=== PATIENT | female | born 1985 | race Caucasian/White ===

== ENCOUNTER 2017-01-14 22:36 | Inpatient (IN) | payer OTHER ==
[~2017-01-14] VITALS: Ht 165.1 cm; Wt 82.6 kg
[2017-01-14] MEDS ORDERED: PRENATAL TABLE1 EAC2 PO (23:28)
--- NOTE | 2017-01-14 23:52 | History & Physical ---
General Information and HPI MD Statement: I have seen and personally examined MARK STANTONARY Brittney and documented this H&P. The patient is a 31 year old female at [38] weeks and [1/7] days gestation who presented with a chief complaint of SROM []. Source of Information: patient, old records Exam Limitations: no limitations History of Present Illness: 31 YO LMP 04/14/2017 BUT ANKIT BY U/S OF 06/21/2017, @ 8 WK 4/7 DAYS, GIVING ANKIT 01/27/2017. SHE IS @ 38 1/7 WEEKS W/ SROM @ 22:00 ON 01/14/2017. CLEAR FLUID NOTED. ISSUES FOR THIS : 1.) GEST DM: DIET CONTROLLED- GOOD CONTROL (HGB A1C 4.8, 12/27/2016) 01/11/2017 SHOULDER DYSTOCIA SCREEN WAS NEG (E F WT THEN WAS 7#1oz, 64%) ENDOCRINE MD CHECKED THYROID Abs ALL NEG, ALSO NL TFTs 2.) RH NEG - Rh AB SCREEN NEG X 2 - RHOGAM GIVEN 11/01/2016 Allergies/Medications Allergies: Coded Allergies: No Known Allergies (01/15/17) Home Med list Vit No.130/Iron/FA ( Tablet) 27 MG IRON-800 MCG TABLET 1 TAB PO DAILY VIT SUPPORT (Reported) Compliance With Home Meds: GOOD Past History clinical coder History : 1 Para: 0 Last Menstrual Period: 04/14/2016 Estimated Delivery Date: 01/27/2017 Past clinical coder History: gestational diabetes Medical History Blood Transfusion Hx: No Neurological: NONE EENT: NONE Cardiovascular: mild HTN- managed w/ diet and exercise Respiratory: NONE Gastrointestinal: NONE Hepatic: NONE Renal: NONE Musculoskeletal: NONE Psychiatric: NONE Endocrine: GEST DM IN THIS Blood Disorders: NONE Cancer(s): NONE CERTIFIED REGISTERED NURSE PRACTITIONER/Reproductive: NONE Surgical History Pertinent Surgical History: none Past Family/Social History Family History Relations & Conditions if any Relation not specified for: *No pertinent family history Psychosocial History Where do you live? Home Who Do You Live With? spouse, self Primary Language: Sammarinese Smoking Status: Never Smoked ETOH Use: denies use Illicit Drug Use: denies illicit drug use Review of Systems Review of Systems: NEG FOR CARDIAC, PULMONARY, GI, COMPLAINTS Exam & Diagnostic Data Last 24 Hrs of Vital Signs/I&O AFEBRILE BP ELEVATED ON ARRIVAL 138-140 /90'S P 82 R 16 P02- 99% RA Obstetric Exam Wgt Gained During : 10 Pelvimetry: SHOULD BE ADEQ FOR AVERAGE SIZED BABY Dilation (cm): 2 Effacement (%): 100 Station: 0 Membranes: SROM Fluid: clear Fundal Height (cm): 38 Multiple Gestation? No Contractions: Q 2 TO 4 MINUTES #1 - FHR Baseline: 130 Category: 1 Estimated Weight: 7#2oz Presentation: VTX Patient for Induction? No Physical Exam General Appearance Alert, Oriented X3, Cooperative, Mild Distress Skin No Significant Lesion Cardiovascular Regular Rate Lungs Normal Air Movement Abdomen Normal Bowel Sounds, Soft, No Tenderness, No Hepatospenomegaly, GRAVID UTERUS, NONTENDER, CONTXNS Q 2 TO 4 MIN FHR 130's Cat 1 Neurological Normal Gait, Normal Speech Extremities No Tenderness/Swelling Reproductive (FEMALE) Normal female genitalia Labs Blood Type & Rh: A NEG Antibody Screen: NEG (06/21/2016, AND 11/02/2016 Hct/Hgb & Platelets #1: 13.9/41.5, 236,00 Hct/Hgb & Platelets #2: 12.5/38.1 210,000 Rubella: IMM VDRL #1: N VDRL #2: N HbsAg: N HIV #1: N HIV #2 N 1 Hr P 3 Hr PG: (F) 76, (1) 180, (2) 156, (3) 139 Group B Strep: NEG Initial Ultrasound: 06/21/2017 ESTABLISHED ANKIT 01/27/2017 Anatomy Ultrasound: 09/14/2016 20 WKS S=D=U/S NL ANATOMY Ultrasound for EFW: 01/11/2017, 7#1oz (64%) VTX BPP 03/14 Genetic Testing: CF NEG DECLINED 1ST TRIM SCREEN, CFF DNA, CVS, AMNIO, MSAFP Last 24 Hrs of Labs/Ghassan: Laboratory Tests 01/14/17 2321: Ur Random Creatinine Pending, U Random Total Protein Pending 01/14/17 2304: Creatinine Pending, Uric Acid Pending, AST Pending, ALT Pending, Lactate Dehydrogenase Pending 01/14/17 2215: Membrane Rupture POSITIVE Assessment/Plan Assessment/Plan: IUP 38 1/7 WKS W/ SROM AND ONSET OF EARLY LABOR GEST DM - GOOD CONTROL AND NL HGB A1C, NEG SHOULDER SCREEN BP ELEVATION ON ADMISSION- ANXIOUS PT (NEVER IN A HOSPITAL A PT BEFORE0 WILL CK [facility] LABS AND MANAGE ACCORDINGLY (H/O MILD HTN- MANAGED W/ DIET AND EXERCISE IN PAST) [facility] LABS WNL NJ/CR RATIO <0.2 ONCE SHE HAD EPIDURAL - NL BP IN LABOR As Ranked By This Provider Problem List: 1. SROM (spontaneous rupture of membranes) 2. Gestational diabetes 3. 4. Labor and delivery, indication for care 5. Rh negative state in antepartum period Core Measures/Miscellaneous Venous Thromboembolism VTE Risk Factors: / VTE Contraindications: Active Bleeding (FALL RISK) VTE Diagnosis: No Beta Jin Is Beta Jin a Home Med? No If No, Why Not? N/A Antibiotics Is Patient on Antibiotics? No Attending MD Review Statement Attending Statement Attending MD Statement: examined this patient, discussed with family, reviewed EMR data (avail), discussed w/nursing Attending Assessment/Plan: Britney GUARDADO MD
[2017-01-15 01:16] LABS: ABSOLUTE BASOPHIL COUNT 0 /CUMM (0.0-0.2); ABSOLUTE EOSINOPHIL COUNT 0 /CUMM (0.0-0.7); ABSOLUTE GRANULOCYTE CT 7.6 /CUMM (1.4-6.5); ABSOLUTE LYMPH COUNT 1.8 /CUMM (1.2-3.4); ABSOLUTE MONOCYTE COUNT 0.7 /CUMM (0.10-0.60); BASOPHIL % 0.2 % (0.0-2.0); EOSINOPHIL % 0.2 % (0-5); GRANULOCYTE % 75.4 % (42.2-75.2); HEMATOCRIT 37.3 % (37-47); MEAN CORPUSCULAR HGB 31.8 PG (27.0-31.0); MEAN CORPUSCULAR HGB CONC 33.9 G/DL (33.0-37.0); MEAN CORPUSCULAR VOLUME 93.7 FL (81.0-99.0); MEAN PLATELET VOLUME 12.7 FL (7.4-10.4); PLATELET COUNT 137 /CUMM (130-400); RBC DISTRIBUTION WIDTH 13.5 % (11.5-14.5); RED BLOOD CELL CT 3.98 /CUMM (4.20-5.40)
[2017-01-15 10:39] VITALS: BP 169/79
--- NOTE | 2017-01-15 12:34 | Labor & Delivery Summary ---
Delivery Summary Vaginal Delivery: Vaginal: VERTEX SPONTANEOUS VAGINAL Episiotomy/Lacerations: Episiotomy/Lacerations: LACERATION Type: 2ND DEGREE Repair: 3 -0 VYCRIL Anesthesia: EPIDURAL Placenta: Placenta: spontanteous, normal, 3 vessel Anesthesia: EPIDURAL Baby's Weight: MALE 7#4 LACEY GRULLON Apgars - 1 Min: 9 Apgars - 5 Min: 9 Additional Comments: PT HAD SROM AND ONSET OF LABOR PROGRESSED TO FULLY @ 08:15, ENCOURAGED TO LABOR DOWN BEGAN PUSHING @ 10:18. BP elevation w/ pushing systolic BP > 160"s x 2 so IV Labetalol 20 mg x 1, then systolic BP in 130"s LV male @ 10:59 7#9 APGARS 2ND DEGREE LAC REPAIRED IN LAYERS PLACENTA SPONTANEOUSLY DELIVERED INTACT NL CONFIGURATION 3 VC NO CX OR VAG LAVERATIONS LACEY GRULLON 7#9 [id number] GM
[2017-01-16 07:51] LABS: ABSOLUTE BASOPHIL COUNT 0.1 /CUMM (0.0-0.2); ABSOLUTE EOSINOPHIL COUNT 0 /CUMM (0.0-0.7); ABSOLUTE MONOCYTE COUNT 0.9 /CUMM (0.10-0.60); BASOPHIL % 0.4 % (0.0-2.0); EOSINOPHIL % 0.2 % (0-5); PLATELET COUNT 95 /CUMM (130-400); RED BLOOD CELL CT 3.14 /CUMM (4.20-5.40); WHITE BLOOD CELL COUNT 12.9 /CUMM (4.8-10.8)
[2017-01-16 08:11] LABS: ABSOLUTE GRANULOCYTE CT 9.7 /CUMM (1.4-6.5); ABSOLUTE LYMPH COUNT 2.2 /CUMM (1.2-3.4); GRANULOCYTE % 75.1 % (42.2-75.2); MEAN CORPUSCULAR HGB 31.7 PG (27.0-31.0); MEAN CORPUSCULAR HGB CONC 33.3 G/DL (33.0-37.0); MEAN CORPUSCULAR VOLUME 95.2 FL (81.0-99.0); MEAN PLATELET VOLUME 11.8 FL (7.4-10.4); RBC DISTRIBUTION WIDTH 13.9 % (11.5-14.5)
[2017-01-16 08:13] LABS: HEMATOCRIT 29.9 % (37-47)
--- NOTE | 2017-01-16 08:48 | PN- OBGYN ---
Surgical Brief Attending Note Brief Attending Note: NO COMPLAINTS. DOING WELL. AMBULATING, VOIDING, TOLERATING PAIN AND PO. BOTTLE FEEDING BUT ? MAY TRY NURSING TODAY. APPROPRIATE LOCHIA VSSAF 110/60 FF@U EXT: NO CALF TENDERNESS, TRACE B/L PEDAL EDEMA Laboratory Tests 01/16/17 0545: Kleihauer Cells Cancelled 01/16/17 0545: CBC w Diff NO MAN DIFF REQ, RBC 3.14 L, MCV 95.2, MCH 31.7 H, RDW 13.9, MPV 11.8 H, Gran % 75.1, Lymphocytes % 17.5 L, Monocytes % 6.8, Eosinophils % 0.2, Basophils % 0.4, Absolute Granulocytes 9.7 H, Absolute Lymphocytes 2.2, Absolute Monocytes 0.9 H, Absolute Eosinophils 0, Absolute Basophils 0.1, PUBS MCHC 33.3 01/15/17 0100: Ur Random Creatinine 111.4, U Random Total Protein 13 H, Protein/Creatinin Ratio 0.1 01/15/17 0100: Urinalysis MOD H, Urine Color YEL, Urine Clarity CLDY H, Urine pH 6.0, Ur Specific Wayne 1.025, Urine Protein NEG, Urine Ketones >=80, Urine Nitrite NEG , Urine Bilirubin NEG, Urine Urobilinogen 0.2, Ur Leukocyte Esterase NEG, Ur Microscopic SEDIMENT EXAMINED, Urine RBC 5-10 H, Urine WBC 3-5 H, Ur Epithelial Cells FEW, Urine Bacteria FEW H, Urine Mucus MOD H, Urine Hemoglobin TRACE-INTACT, Urine Glucose NEG 01/15/17 0050: CBC w Diff NO MAN DIFF REQ, RBC 3.98 L, MCV 93.7, MCH 31.8 H, RDW 13.5, MPV 12.7 H, Gran % 75.4 H, Lymphocytes % 17.5 L, Monocytes % 6.7, Eosinophils % 0.2, Basophils % 0.2, Absolute Granulocytes 7.6 H, Absolute Lymphocytes 1.8, Absolute Monocytes 0.7 H, Absolute Eosinophils 0, Absolute Basophils 0, PUBS MCHC 33.9 01/14/17 2321: Ur Random Creatinine 15.7, U Random Total Protein 60 H, Protein/Creatinin Ratio 3.8 H 01/14/17 2304: Estimated GFR > 60, Uric Acid 4.9, AST 21, ALT 44, Lactate Dehydrogenase 488 06/10/17 2254: Urine Color Cancelled, Urine Clarity Cancelled, Urine pH Cancelled, Ur Specific Wayne Cancelled, Urine Protein Cancelled, Urine Ketones Cancelled, Urine Nitrite Cancelled, Urine Bilirubin Cancelled, Urine Urobilinogen Cancelled, Ur Leukocyte Esterase Cancelled, Ur Microscopic Cancelled, Urine Hemoglobin Cancelled, Urine Glucose Cancelled 01/14/17 2215: Membrane Rupture POSITIVE A/P PPD1. DOING WELL. ROUTINE PP CARE. CONSULTATIO NTODAY. DESIRES CIRC. MOTHER COUNSELED.
[2017-01-17] MEDS ORDERED: IBUPROFEN800 M1 PO (10:02)
--- NOTE | 2017-01-17 10:06 | PN- Post Delivery/GYN ---
Subjective Subjective: feeling well Review of Systems Constitutional: Reports: no symptoms. EENTM: Denies: blurred vision, double vision. Cardiovascular: Denies: peripheral edema. Respiratory: Denies: short of breath. Gastrointestinal: Denies: nausea, vomiting. Objective Last 24 Hrs of Vital Signs/I&O vss Physical Exam General Appearance Alert, Oriented X3, Cooperative, No Acute Distress Cardiovascular Regular Rate Lungs Clear to Auscultation Abdomen Soft, No Tenderness, fundus firm Pelvic (FEMALE) lochia serosanganous Assessment/Plan Assessment/Plan ppd #2 vss afebrile Problem List: 1. Labor and delivery, indication for care Attending MD Review Statement Attending Statement Attending MD Statement: examined this patient, discussed with family, discussed with nursing
== END 2017-01-17 11:40 | DRG 774 ==
LOC: CBCO 22:36 → GNO 23:08
PROVIDERS: ADMIT Obstetrics & Gynecology
PROC: 0HQ9XZZ Repair Perineum Skin, External Approach (ICD-10-PCS; principal; 2017-01-15)
PROC: 10E0XZZ Delivery of Products of Conception, External Approach (ICD-10-PCS; principal; 2017-01-15)
DX: O24.420 Gestational diabetes mellitus in childbirth, diet controlled (principal); O10.92 Unspecified pre-existing hypertension complicating childbirth; O69.81X0 Labor and delivery complicated by cord around neck, without compression, not applicable or unspecified; O70.1 Second degree perineal laceration during delivery; Z37.0 Single live birth; Z3A.38 38 weeks gestation of pregnancy
CPT/HCPCS: GNOP; GNOS; 36415; 81001; 82570; 84112; 88307; J0131; J1885; J7120